=== PATIENT | male | born 1995 | race Caucasian/White ===

== ENCOUNTER 2017-06-15 20:33 | Emergency (ER) | payer OTHER ==
[2017-06-15 20:42] VITALS: BP 120/63
[2017-06-15] MEDS ORDERED: Lidocain 1% EPI 1:100,000 * 30 ML MDV INJ ONE (20:43)
[2017-06-15] MEDS ORDERED: Lidocaine 1% INJ* 10 MG/ML 30 ML SDV INJ ONE (21:12)
[2017-06-15] MEDS ORDERED: Lidocaine 1% MPF* 2 ML VIAL INJ ONE ×2 (21:25→21:58)
--- NOTE | 2017-06-15 22:17 | UC ---
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 Patient denies LOC, headache, vision changes. Unsure of Tdap but college student at [employer], did have vaccinations. - History Of Current Complaint Hx Obtained From: Patient, Family/Workers Compensation Claims Supervisor - friend Laceration Location: Head - Left eyebrow Mechanism Of Injury: Blunt Trauma - wrestling injury Onset/Duration: Sudden Onset Severity: Mild <Vandana Leyva - Last Filed: 06/15/17 22:17> <Carolin Katz - Last Filed: 06/17/17 07:58> - History Of Current Complaint Chief Complaint: UCLaceration Stated Complaint: BROW LAC Time Seen by Provider: 06/15/17 20:59 - Allergies/Home Medications Allergies/Adverse Reactions: Allergies Allergy/AdvReac Type Severity Reaction Status Date / Time Amoxicillin Allergy Rash Verified 06/15/17 20:37 PMH/Surg Hx/FS Hx/Imm Hx Previously Healthy: Yes - Surgical History Surgical History: Yes Surgery Procedure, Year, and Place: left meniscus surgery 2012- DONE IN [place]. left sinus surgery 2012. wisdom teeth 2013. - Social History Alcohol Use: Weekly Alcohol Amount: 1-2/week Substance Use Type: None Smoking Status (MU): Never Smoked Tobacco Have You Smoked in the Last Year: No - Immunization History Most Recent Tetanus Shot: needs <Vandana Leyva - Last Filed: 06/15/17 22:17> Review of Systems Skin: Other - laceration to left eyebrow Is Patient Immunocompromised?: No All Other Systems Reviewed And Are Negative: Yes <Vandana Leyva - Last Filed: 06/15/17 22:17> Physical Exam Triage Information Reviewed: Yes Appearance: Well-Appearing, No Pain Distress, Well-Nourished Vital Signs: Initial Vital Signs Temp 36.6 C 06/15/17 20:38 Pulse 79 06/15/17 20:38 Resp 16 06/15/17 20:38 BP 120/63 06/15/17 20:38 Pulse Ox 100 06/15/17 20:38 Vital Signs Reviewed: Yes Eyes: Positive: Conjunctiva Clear ENT: Positive: Normal ENT inspection, Hearing grossly normal, Other - no tenderness with palpation liz-orbitally with no deformity noted, EMOI, PERRLA, nose straight, non-tender, _ full ROM of brow and eye, able to kep eye closed against resistence. full thickness laceration noted to medial eyebrow extending 1cm on forehead, minimal bleeding. <Vandana Leyva - Last Filed: 06/15/17 22:17> Vital Signs: Initial Vital Signs Temp 98 F 06/15/17 20:38 Pulse 79 06/15/17 20:38 Resp 16 06/15/17 20:38 BP 120/63 06/15/17 20:38 Pulse Ox 100 06/15/17 20:38 <Carolin Katz - Last Filed: 06/17/17 07:58> Laceration Repair - Laceration Repair 1 Description: Linear Laceration Size After Repair: Length (cm) - 2cm, Width (mm) - 10, Depth (mm) - 10 Contamination/FB Removal: none Modified For Repair: No Type Injection: Local Anesthesia Used: 2.0% Lido Cleansing Completed Via Routine Prep: Yes Irrigation With Pressure Irrigation Device: Yes Closure Material: Sutures Closure Method: Multilayer Suture Of: Skin - 8, SQ - 4 Suture Type: Nylon, Other - polysorb <Vandana Leyva - Last Filed: 06/15/17 22:17> Laceration Course/Dx - Course/Dx Course Of Treatment: laceration with good repair without complaint, follow up for suture removal within 5 days, aptient will follow up with workplace trainer and assessor and dr. kimble. No other questions/ concerns. care discussed with Dr. Katz - Differential Dx - Laceration/Wound Differental Diagnoses: Cellulitis, Laceration Provider Diagnoses: laceration repair left eyebrow <Vandana Leyva - Last Filed: 06/15/17 22:17> Discharge <Vandana Leyva - Last Filed: 06/15/17 22:17> <Carolin Katz - Last Filed: 06/17/17 07:58> - Discharge Plan Condition: Good Disposition: HOME Patient Education Materials: Care For Your Stitches (ED), Stitches Removal (ED) , Facial Laceration (ED) Referrals: [facility] [Outside] - 5 Days (within 5 days for suture removal ) Marlee Gamboa MD [Primary Care Provider] - Additional Instructions: - monitor site for any swelling, redness, drainage- follow up with primary physician or return to ER if occurs - Tylenol/ motrin as needed for pain - Ice as needed for pain - Return to ER with headache, vision changes, memory changes, decreased speech/ motor. - follow up with primary for suture removal within 5 days Attestation Statement User Type: Provider - I was available for consult. This patient was seen by the PEPITO. The patient was not presented to, seen by, or examined by me. -Eva <Carolin Katz - Last Filed: 06/17/17 07:58>
== END 2017-06-15 22:28 | disposition home or self-care (01) ==
LOC: UCEAST 20:33
DX: S01.81XA Laceration without foreign body of other part of head, initial encounter (principal); X58.XXXA Exposure to other specified factors, initial encounter; Y93.72 Activity, wrestling; Y92.39 Other specified sports and athletic area as the place of occurrence of the external cause; Z88.1 Allergy status to other antibiotic agents
CPT/HCPCS: 12051; 99211; G0463; J2001

== ENCOUNTER 2018-03-07 06:26 | Day surgery (SDC) | payer OTHER ==
[~2018-03-07 06:26] MED LIST: Buffered Lidocaine 0.9% SYRIN* 5 ML/SYR SYRINGE INTRADERM ONE; Dexamethasone IV* 4 MG/ML 1 ML (4 MG) IV SLOW PU ONE; Dexamethasone IV* 4 MG/ML 1 ML (4 MG) ONE; Famotidine IV* 10 MG/ML 2 ML (20 mg) IV ONE; Famotidine IV* 10 MG/ML 2 ML (20 mg) ONE
[2018-03-07] MEDS ORDERED: Clindamycin 900 MG IVPREMIX(* 900 MG/50 ML SDV IV ONE (06:32)
[2018-03-07] MEDS ORDERED: Lidocain 1% EPI 1:100,000 * 30 ML MDV ONE (07:07)
[2018-03-07] MEDS ORDERED: Bupivacaine 0.5% PF 10 ML VIAL INJ ONE (07:07)
[2018-03-07] MEDS ORDERED: fentaNYL* 50 MCG/ML 2 ML VIAL (100 MCG VIAL) ONE (07:17)
[2018-03-07] MEDS ORDERED: Midazolam* 1 MG/ML 2 ML VIAL (2 MG) ONE (07:17)
[2018-03-07] MEDS ORDERED: Chloroprocaine 2%* 20 ML VIAL ONE (07:18)
[2018-03-07] MEDS ORDERED: Naloxone* 0.4 MG/ML 1 ML VIAL IV PRN (07:21)
[2018-03-07] MEDS ORDERED: oxyCODONE/Acetamin 5/325 MG* TAB ONE (09:52)
[2018-03-07 10:16] VITALS: BP 132/60
[2018-03-07] MEDS ORDERED: Ketorolac INJ* 30 MG/ML 1 ML VIAL ONE (10:27)
[2018-03-07] MEDS ORDERED: Propofol* 10 MG/ML 20 ML BTL IV PUSH ONE (10:27)
--- NOTE | 2018-03-07 15:33 | OP ---
CC: On License Of [facility].* DATE OF OPERATION: 03/07/18 - [facility] DATE OF : 89 SURGEON: Nia Buenrostro MD TANK BUILDER HELPER: None available. ANESTHESIOLOGIST: Dr. Dong. ANESTHESIA: Spinal with local MAC. PRE-OP DIAGNOSIS: Left knee medial meniscus tear. POST-OP DIAGNOSES: 1. Left knee medial meniscus tear. 2. Lateral meniscal root fraying. OPERATIVE PROCEDURE: Left knee arthroscopy with partial medial and partial lateral meniscectomy. COMPLICATIONS: None. ESTIMATED BLOOD LOSS: Minimal. 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 He has had partial meniscectomies in the past. He had a history of a meniscus repair. He was doing okay until earlier this year when he twisted and felt a pop in his knee. He has had persistent issues with catching and locking, and mechanical symptoms. Risks and benefits of the surgery were discussed at length including but not limited to bleeding, infection, damage to nerves, vessels, surrounding structures, the wound not healing, persistent pain, need for further surgery, scarring, stiffness, incomplete relief of symptoms, risk of anesthesia, and risk of DVT. DESCRIPTION OF PROCEDURE: The patient was greeted in the preoperative area by the attending surgeon. Correct extremity was marked. Consent was confirmed. The patient was brought back to the operating suite, where he was placed in supine position on the operating table. He then underwent spinal anesthesia, after which a nonsterile tourniquet was placed high on the left leg. A lateral post was positioned. The left leg was then prepped and draped in usual sterile fashion beginning with chlorhexidine soap, scrub, an alcohol wipe, and a final prep with ChloraPrep. After appropriate surgical pause indicating site, side, procedure, and administration of antibiotics, the knee was intra-articularly injected with 1% lidocaine with epi. The anterolateral portal was made sharply with an 11 blade. A scope was introduced into the joint. Joint was examined. There was abundant synovitis in fat pad abundantly. This was removed using the shaver. The ACL and PCL were intact. The medial compartment had grade 0 to 1 changes of medial femoral condyle and medial plateau. There was an unstable tear of the medial meniscus that was present. The neeraj and biters were then used to debride this back to a stable layer. Some of the root was involved as well, which was also debrided back. The Sp[place] portal was also utilized to visualize any posterior loose bodies or flaps of tissue. Once the partial meniscectomy was completed, attention was directed laterally. The knee was positioned in a figure-of-4 position. The scope was used to visualize that the body of the meniscus was intact. There was a small amount of fraying at the root of the meniscus, this was debrided back using a shaver. The lateral compartment had grade 0 to 1 changes about the lateral femoral condyle and lateral plateau. The knee was placed in extension. There were grade 0 to 1 changes of the patellofemoral joint. Synovitis was removed from the anterior, medial, and lateral aspects of the patella of the joint. The shaver was used to debride this back. Final images were obtained. The knee was thoroughly lavaged and removed of loose debris. The wounds were copiously irrigated with sterile saline and the portals were closed with 3-0 nylon in an interrupted fashion. The knee was injected with 0.25% Marcaine plain. The sterile dressings were applied and Cryo/Cuff was applied. He was awoken from anesthesia and transferred to PACU in stable condition. POSTOPERATIVE PLAN: He will be weightbearing as tolerated. DVT prophylaxis was considered, but deferred due to no previous personal or family history. I will see the patient back in 10 to 14 days. [id number]/[facility] #: [id number] MTDD
== END 2018-03-07 10:34 | disposition home or self-care (01) ==
LOC: OREAST 06:26
PROVIDERS: ATTEND Orthopaedic Surgery
DX: S83.242A Other tear of medial meniscus, current injury, left knee, initial encounter (principal); S83.282A Other tear of lateral meniscus, current injury, left knee, initial encounter; X50.0XXA Overexertion from strenuous movement or load, initial encounter; Y93.9 Activity, unspecified; Y92.9 Unspecified place or not applicable
CPT/HCPCS: 88304; A9270-GY; J1100; J1885; J2250; J2400; J2704; J3010